=== PATIENT | male | born 2000 | race Two or more races ===

== ENCOUNTER → 2019-01-05 | Outpatient (CLI) | payer OTHER ==
--- NOTE | 2019-01-05 18:28 | RADIOLOGY REPORT (SQ) ---
EXAM DESCRIPTION: L SPINE WHOLE COMPLETED DATE/TIME: 01/05/2019 6:17 pm REASON FOR STUDY: LOW BACK PAIN COMPARISON: None. NUMBER OF VIEWS: Five views including obliques. TECHNIQUE: AP, lateral, oblique, and sacral radiographic images acquired of the lumbar spine. LIMITATIONS: None. FINDINGS: MINERALIZATION: Normal. SEGMENTATION: Normal. No transitional anatomy. ALIGNMENT: Normal. VERTEBRAE: Maintained height. No fracture or worrisome bone lesion. DISCS: Preserved height. No significant osteophytes or end plate irregularity. POSTERIOR ELEMENTS: Pedicles and facets are intact. No pars defect or posterior arch defects. HARDWARE: None in the spine. PARASPINAL SOFT TISSUES: Normal. PELVIS: Intact as visualized. No fractures or worrisome bone lesions. SI joints intact. OTHER: No other significant finding. IMPRESSION: NORMAL 5 VIEW LUMBAR SPINE. TECHNICAL DOCUMENTATION: JOB ID: [id number] [employer]- All Rights Reserved Reading location - IP/workstation name: [email or web address]
== END ==
LOC: RAD 17:57
PROVIDERS: ATTEND Nurse Practitioner Family
DX: M54.5 Low back pain (principal)
CPT/HCPCS: 72110

== ENCOUNTER 2019-12-10 23:41 | Emergency (ER) | payer SELFPAY ==
[2019-12-11] MEDS ORDERED: ALBUTEROL SULFATE HFA (90 MCG/PUFF) 8 GM MDI IH ONE (01:29)
--- NOTE | 2019-12-11 01:37 | ER Document Report ---
ED General - General Chief Complaint: Productive Cough Stated Complaint: COUGH, SORE THROAT, FEELING FEVERISH, CHILLS Time Seen by Provider: 12/11/19 00:40 Notes: 19 year old male presents to the ED complaining of frontal headache, chills, fever, non-productive cough, and diarrhea onset today, not associated with abdominal pain, nausea or vomiting. Patient denies any neck pain or neck stiffness. Admits a small amount of shortness of breath. Admits a small amount of wheezing. Does not have a rescue inhaler at home. Feels like he may have used it today if he had one. Notes that he took ibuprofen at 1030 this evening. TRAVEL OUTSIDE OF THE [place] IN LAST 30 DAYS: No - Related Data Allergies/Adverse Reactions: amoxicillin [From Augmentin] Allergy (Verified 12/11/19 00:57) clavulanic acid [From Augmentin] Allergy (Verified 12/11/19 00:57) Past Medical History - General Information source: Patient - Social History Smoking Status: Never Smoker Chew tobacco use (# tins/day): No Frequency of alcohol use: None Drug Abuse: None Family History: Reviewed & Not Pertinent Patient has homicidal ideation: No Pulmonary Medical History: Reports: Hx Asthma Review of Systems - Review of Systems Constitutional: See HPI, Chills, Diaphoresis, Fever EENT: See HPI, Nose congestion, Nose discharge, Sinus pressure. denies: Nose pain, Throat pain Cardiovascular: No symptoms reported. denies: Chest pain, Palpitations Respiratory: See HPI, Cough, Short of breath, Wheezing Gastrointestinal: See HPI, Diarrhea. denies: Abdomen distended, Abdominal pain, Nausea, Vomiting Musculoskeletal: No symptoms reported. denies: Neck pain -: Yes All other systems reviewed and negative Physical Exam - Vital signs Vitals: Temp 99.5 F 12/10/19 23:42 Interpretation: Tachycardic - Notes Notes: GENERAL: Alert, interacts well. No acute distress. HEAD: Normocephalic, atraumatic EYES: Pupils equal, round and reactive to light, extraocular movements intact. ENT: Oral mucosa moist, tongue midline. clear rhinorrhea on the right, small turbinate edema. Cobblestoning in the posterior oropharynx, no tonsillar discharge. NECK: Full range of motion, supple, trachea midline. LUNGS: Clear to auscultation bilaterally, no wheezes, rales or rhonchi, no respiratory distress. HEART: Regular rate and rhythm, no murmurs, gallops, rubs. ABDOMEN: Soft, nontender, nondistended, bowel sounds present in all 4 quadrants. EXTREMITIES: Moves all 4 extremities spontaneously, no edema, radial and dorsalis pedis pulses 2/4 bilaterally. No cyanosis. NEUROLOGICAL: Alert and oriented x3, normal speech. PSYCH: Normal mood, normal affect. SKIN: Warm, Dry, normal turgor. Course - Re-evaluation Re-evalutation: 12/11/19 03:06 Chest X-Ray 12/11/19 01:29 IMPRESSION: No acute cardiopulmonary findings. Flu swabs are negative. Given no wheezing here there is really no indication for steroids at this time. Patient will be given a rescue inhaler to use at home as needed. Flu swabs are negative. Patient is tested for coronavirus. I do favor viral syndrome as cause of this patient's symptoms given the diffuse nature. There is no sign of meningitis at this time given the fact that he has full range of motion of his neck, no neck pain and the headache is only frontal and reproducible with percussion. Patient will be discharged to home. Given precautions on coronavirus testing and quarantined. - Vital Signs Vital signs: Temp Pulse Resp BP Pulse Ox 99.5 F 117 H 18 144/95 H 97 12/11/19 00:12 12/11/19 00:12 12/11/19 00:12 12/11/19 00:12 12/11/19 00:12 Discharge - Discharge Clinical Impression: Viral syndrome Condition: Stable Disposition: HOME, SELF-CARE Instructions: COVID-19 Guidance for Persons Under Investigation Additional Instructions: Today I cannot tell you exactly what is causing your symptoms. Given the fact that you have headache, chills, cough and diarrhea and that this is a fairly diffuse constellation of symptoms it is likely coming from a virus. I do not know which virus. You have been tested for coronavirus. It is important that you stay away from other people until this test result is back. I have provided you with an inhaler that you may use should your breathing worsen. If you have to use more than 2 puffs every 4 hours please return to the emergency department. You may use Imodium as directed on the box [id number]. Please return to the emergency department for neck pain, difficulty moving your neck or worsening headache. Please use nasal saline rinses such as a NetiPot or NeilMed Sinus Rinses. You may use Benadryl at night and Sudafed during the day both as directed on the box [id number]. Please use Nasonex or other nasal steroid 1 squirt per nostril twice a day. Many of these are available [id number]. Please use ibuprofen (Motrin or Advil) 600-800 mg every 8 hours as needed for pain or fever. You may also use acetaminophen (Tylenol) 1000 mg every 4-6 hours as needed for pain or fever. Please be aware that many medications contain acetaminophen, do not exceed a total of 1000 mg of acetaminophen every 6 hours.
--- NOTE | 2019-12-11 02:48 | RADIOLOGY REPORT (SQ) ---
EXAM DESCRIPTION: XR CHEST 1 VIEW COMPLETED DATE/TME: 12/11/2019 01:29 CLINICAL HISTORY: 19 years Male, cough, fever COMPARISON: None. NUMBER OF VIEWS/TECHNIQUE: 1/AP FINDINGS: Adequate lung volume, clear parenchyma, normal cardiac silhouette, and intact bony thorax. IMPRESSION: No acute cardiopulmonary findings.
[2019-12-11 02:55] LABS: A TYPE INFLUENZA AG NEGATIVE (NEGATIVE); B INFLUENZA AG NEGATIVE (NEGATIVE)
[2019-12-11 03:18] VITALS: BP 134/82
== END 2019-12-11 03:27 | disposition home or self-care (01) ==
LOC: ER 23:41
DX: U07.1 COVID-19 (principal); J45.909 Unspecified asthma, uncomplicated; R05 Cough; R51 Headache; R50.9 Fever, unspecified; R19.7 Diarrhea, unspecified; R06.02 Shortness of breath; R09.81 Nasal congestion; J34.89 Other specified disorders of nose and nasal sinuses; Z88.0 Allergy status to penicillin; Z20.828 Contact with and (suspected) exposure to other viral communicable diseases
CPT/HCPCS: 99283; 87635; 87804; 71045; J3490; C9803